=== PATIENT | female | born 1975 | race African-American/Black ===

== ENCOUNTER 2018-06-07 15:20 | Emergency (ER) | payer OTHER ==
[~2018-06-07] VITALS: Ht 162.6 cm; Wt 91.6 kg
[2018-06-07] MEDS ORDERED: METFORMIN HCL750 MG (15:33)
[2018-06-07] MEDS ORDERED: NP THYROID60 MG (15:33)
[2018-06-07] MEDS ORDERED: ZOCOR5 MG (15:34)
[2018-06-07] MEDS ORDERED: XARELTO20 MG (15:34)
== END 2018-06-07 22:46 | disposition home or self-care (01) ==
LOC: ER 15:20
DX: R10.84 Generalized abdominal pain (principal)